=== PATIENT | male | born 1995 | race Caucasian/White ===

== ENCOUNTER 2021-10-07 00:49 | Emergency (ER) | payer OTHER ==
[~2021-10-07] VITALS: Ht 172.7 cm; Wt 101.8 kg
[2021-10-07] MEDS ORDERED: PERTUSS(ACELL),DIPH,TET VAC/PF 0.5 ML SYRINGE IM. ONE (03:00)
[2021-10-07] MEDS ORDERED: IBUPROFEN 800 MG TABLET PO ONE (03:00)
[2021-10-07 04:10] VITALS: BP 135/80
== END 2021-10-07 04:30 | disposition home or self-care (01) ==
LOC: EMS 00:51
DX: S60.221A Contusion of right hand, initial encounter (principal); F12.90 Cannabis use, unspecified, uncomplicated; V47.5XXA Car driver injured in collision with fixed or stationary object in traffic accident, initial encounter; W22.12XA Striking against or struck by front passenger side automobile airbag, initial encounter; Y93.89 Activity, other specified; Y92.89 Other specified places as the place of occurrence of the external cause; Y99.8 Other external cause status
CPT/HCPCS: 90471; 90715; 99285

== ENCOUNTER 2023-10-10 09:56 | Emergency (ER) | payer OTHER ==
[~2023-10-10] VITALS: Ht 172.7 cm; Wt 97.7 kg
[2023-10-10 10:02] VITALS: TEMP 98
[2023-10-10] MEDS ORDERED: BACITRACIN 28 GM OINTMENT TP ONE (10:45)
[2023-10-10] MEDS ORDERED: BACITRACIN 0.9 GM PACKET OINTMENT TP ONE (10:48)
[2023-10-10 10:49] VITALS: BP 140/87; PULSE 88; RESP 18
== END 2023-10-10 11:09 | disposition home or self-care (01) ==
LOC: EMS 09:58
DX: T81.89XA Other complications of procedures, not elsewhere classified, initial encounter (principal); F12.90 Cannabis use, unspecified, uncomplicated; Z98.890 Other specified postprocedural states
CPT/HCPCS: 99282; Z7502; Z7610